=== PATIENT | male | born 1985 | race Caucasian/White ===

== ENCOUNTER 2017-07-12 09:09 | Emergency (ER) | payer OTHER ==
[2017-07-12] MEDS ORDERED: predniSONE 20 MG TAB PO ONE (09:24)
[2017-07-12] MEDS ORDERED: CYCLOBENZAPRINE HCL 10 MG TAB PO ONE (09:24)
--- NOTE | 2017-07-12 10:00 | RAD ---
EXAM DESCRIPTION: Lumbar Spine 3 Views CLINICAL HISTORY: fell 2d, lbp, prev injury 5 yrs ago COMPARISON: None Available. TECHNIQUE: Three views of the lumbar spine FINDINGS: Three views of the lumbar spine demonstrate multilevel disc degenerative narrowing with relative sparing at the L3-4 and L2-3 levels. Alignment is essentially anatomic. Multilevel facet sclerosis is present. No vertebral collapse is seen and no other abnormalities noted. IMPRESSION: Degenerative spine disease and facet arthrosis with normal alignment. Electronically signed by: Sheldon Ivey MD 07/12/2017 9:59 AM CDT
--- NOTE | 2017-07-12 10:10 | ED.PDOC ---
History of Present Illness - General Chief Complaint: Back Pain or Injury Stated Complaint: Right lower back discomfort Time Seen by Provider: 07/12/17 09:15 Source: patient Exam Limitations: no limitations - History of Present Illness Initial Comments: the patient is a 31-year-old male presenting to the emergency room after 2 days of low back pain with some spasm to the right and some mild sciatica to the right. Low back pain is worse with sitting and better with standing. No sensory changes. No weakness. No incontinence. The patient did this while he was at work when he slipped and fell down into a hole about 3 foot and landed on his right buttock area. Severity: moderate Improving Factors: nothing Worsening Factors: other - sitting Associated Symptoms: denies symptoms Allergies/Adverse Reactions: Allergies NO KNOWN ALLERGY Allergy (Verified 07/12/17 09:19) Home Medications: Ambulatory Orders Cyclobenzaprine HCl [Flexeril] 10 mg PO Q8HR PRN #30 tab 07/12/17 predniSONE [Prednisone] 20 mg PO DAILY #7 tab 07/12/17 Review of Systems - Review of Systems Constitutional: States: no symptoms reported EENTM: States: no symptoms reported Respiratory: States: no symptoms reported Cardiology: States: no symptoms reported Gastrointestinal/Abdominal: States: no symptoms reported Genitourinary: States: no symptoms reported Musculoskeletal: States: see HPI, back pain Skin: States: no symptoms reported Neurological: States: see HPI Endocrine: States: no symptoms reported All other Systems: No Change from Baseline Past Medical History (General) - Patient Medical History Hx Stroke: No Hx Congestive Heart Failure: No Hx Diabetes: No Hx MRSA: No Surgical History: no surgical history - Vaccination History Hx Influenza Vaccination: No Hx Pneumococcal Vaccination: No - Social History Hx Tobacco Use: No Family Medical History - Family History Father Living Status: Still Living Hx Family Hypertension: Yes Physical Exam - Physical Exam General Appearance: Alert, Comfortable, No apparent distress Eye Exam: bilateral normal Ears, Nose, Throat: hearing grossly normal Neck: non-tender, supple Respiratory: no respiratory distress, no accessory muscle use Cardiovascular/Chest: normal peripheral pulses, no edema Peripheral Pulses: radial,right: 2+, radial,left: 2+, dorsalis pedis,right: 2+, dorsalis pedis,left: 2+ Gastrointestinal/Abdominal: other - obese Rectal Exam: deferred Back Exam: no vertebral tenderness, CVA tenderness (R) 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 X-rays lumbar spine show no evidence of any significant fracture or subluxation. He does have chronic degenerative changes would be expected. I suspect this is a soft tissue injury only. The patient will be treated for myofascial strain with associated muscle spasm and radiculopathy. The patient be placed on prednisone 20 mg daily for one week. He will also be written for Flexeril as a muscle relaxer for as needed use. He can apply topical heat to help reduce muscle spasm as well. He also needs to do stretching exercises of the low back. I do recommend a lifting limitation of 20 pounds for at least the next 10 days. ER warnings were given for any significant worsening, which may indicate the need for additional imaging. He should probably follow up with his primary care doctor before resuming full unrestricted lifting. Departure - Departure Clinical Impression: Acute myofascial strain of lumbar region Qualifiers: Encounter type: initial encounter Qualified Code(s): S39.012A - Strain of muscle, fascia and tendon of lower back, initial encounter Disposition: Discharge to Home or Self Care Condition: Fair Departure Forms: ED Discharge - Pt. Copy, Patient Portal Self Enrollment Instructions: DI for Back Strain or Sprain, DI for Back Pain With Sciatica Diet: regular diet Activity: other - see below Referrals: Lamine Gonzalez MD [Primary Care Provider] - 1-2 Weeks Prescriptions: Cyclobenzaprine HCl [Flexeril] 10 mg PO Q8HR PRN #30 tab PRN Reason: Muscle Spasms predniSONE [Prednisone] 20 mg PO DAILY #7 tab Home Medications: Ambulatory Orders Cyclobenzaprine HCl [Flexeril] 10 mg PO Q8HR PRN #30 tab 07/12/17 predniSONE [Prednisone] 20 mg PO DAILY #7 tab 07/12/17 Additional Instructions: the patient is a 31-year-old male presenting to the emergency room secondary to low back pain primarily to the right side after having slipped and fallen in a hole at work 2 days ago. X-rays lumbar spine show no evidence of any significant fracture or subluxation. He does have chronic degenerative changes would be expected. I suspect this is a soft tissue injury only. The patient will be treated for myofascial strain with associated muscle spasm and radiculopathy. The patient be placed on prednisone 20 mg daily for one week. He will also be written for Flexeril as a muscle relaxer for as needed use. He can apply topical heat to help reduce muscle spasm as well. He also needs to do stretching exercises of the low back. I do recommend a lifting limitation of 20 pounds for at least the next 10 days. ER warnings were given for any significant worsening, which may indicate the need for additional imaging. He should probably follow up with his primary care doctor before resuming full unrestricted lifting.
[2017-07-12 10:26] VITALS: BP 126/81; TEMP 97.9; O2SAT 98
== END 2017-07-12 10:23 | disposition home or self-care (01) ==
LOC: ER 09:09
DX: S39.012A Strain of muscle, fascia and tendon of lower back, initial encounter (principal); W17.2XXA Fall into hole, initial encounter; Y92.89 Other specified places as the place of occurrence of the external cause; Y99.0 Civilian activity done for income or pay
CPT/HCPCS: 72100; J7512

== ENCOUNTER 2019-08-20 15:14 | Emergency (ER) | payer OTHER ==
[2019-08-20] MEDS ORDERED: TETANUS,DIPHTHERIA,PERTUSSIS 1 EA SYG IM ONE (15:40)
[2019-08-20] MEDS ORDERED: LIDOCAINE 1% W/ EPINEPHRINE 20 ML VIAL INJ STA (15:43)
[2019-08-20] MEDS ORDERED: NEOMYCIN-BACITRACIN-POLYMYXIN 0.9 GM UD TOP ONE (16:47)
--- NOTE | 2019-08-20 16:50 | ED.PDOC ---
History of Present Illness - General Chief Complaint: Laceration Time Seen by Provider: 08/20/19 15:40 Source: patient Exam Limitations: no limitations - History of Present Illness Initial Comments: The patient is a 33 year old with no significant past medical history who presents with left hand laceration just prior to arrival. States that he was climbing over a barbwire fence when he fell lacerating his left palm. Last tetanus was around 10 years ago. No other injury or complaints at this time. No weakness, numbness or tingling. Allergies/Adverse Reactions: Allergies NO KNOWN ALLERGY Allergy (Verified 07/12/17 09:19) Home Medications: Ambulatory Orders Cephalexin Monohydrate [Keflex] 500 mg PO BID #14 cap 08/20/19 Review of Systems - Review of Systems Constitutional: States: no symptoms reported EENTM: States: no symptoms reported Respiratory: States: no symptoms reported Cardiology: States: no symptoms reported Gastrointestinal/Abdominal: States: no symptoms reported Genitourinary: States: no symptoms reported Musculoskeletal: States: no symptoms reported Skin: States: other - laceration to left palm Neurological: Denies: tingling, weakness Endocrine: States: no symptoms reported Hematologic/Lymphatic: States: no symptoms reported All other Systems: Reviewed and Negative Past Medical History (General) - Patient Medical History Hx Stroke: No Hx Congestive Heart Failure: No Hx Diabetes: No Hx MRSA: No Surgical History: no surgical history - Vaccination History Hx Influenza Vaccination: No Hx Pneumococcal Vaccination: No - Social History Hx Tobacco Use: No Family Medical History - Family History Father Living Status: Still Living Hx Family Hypertension: Yes Physical Exam - Physical Exam General Appearance: Comfortable, No apparent distress Respiratory: no respiratory distress Peripheral Pulses: radial,left: 2+ Extremity: normal range of motion, normal capillary refill, other - 2cm stellate laceration to left palm Neurologic: no motor/sensory deficits, alert, normal mood/affect, oriented x 3 Skin Exam: normal color, warm/dry Progress - Progress Progress: 08/20/19 16:50 Patient with left palm laceration. Irrigated with tap water, closed with 5-0 prolene. Reviewed detailed wound care instructions, return in one week for suture removal. Procedures - Laceration/Wound Repair Left Hand Wound's Depth, Shape: superficial Wound Explored: no foreign body removed Betadine Prep?: No Anesthesia: Lidocaine w/ Epi Wound Debrided: minimal Wound Repaired With: sutures Suture Size/Type: 5:0, prolene Number of Sutures: 7 Layer Closure?: No Sterile Dressing Applied?: Yes Departure - Departure Clinical Impression: Laceration of hand Qualifiers: Encounter type: initial encounter Foreign body presence: without foreign body Laterality: left Qualified Code(s): S61.412A - Laceration without foreign body of left hand, initial encounter Time of Disposition: 16:52 Disposition: Discharge to Home or Self Care Condition: Fair Departure Forms: ED Discharge - Pt. Copy, Patient Portal Self Enrollment Instructions: DI for Laceration Repair, How to Care for a Laceration After Repair, DI for Laceration Repair -- Simple Diet: resume usual diet Activity: increase activity as tolerated Prescriptions: Cephalexin Monohydrate [Keflex] 500 mg PO BID #14 cap Home Medications: Ambulatory Orders Cephalexin Monohydrate [Keflex] 500 mg PO BID #14 cap 08/20/19 Comments: Return in one week for suture removal, sooner if questions or problems
[2019-08-20 17:06] VITALS: BP 120/78; TEMP 98.2; O2SAT 98
== END 2019-08-20 17:08 | disposition home or self-care (01) ==
LOC: ER 15:14
DX: S61.412A Laceration without foreign body of left hand, initial encounter (principal); W26.8XXA Contact with other sharp object(s), not elsewhere classified, initial encounter; Y92.9 Unspecified place or not applicable